=== PATIENT | female | born 1935 | race Caucasian/White ===

== ENCOUNTER → 2023-12-11 | Outpatient (CLI) | payer MEDICARE, OTHER ==
[~2023-12-11] MED LIST: ALPARAZOLAM0.5 MG PO; ALPRAZOLAM0.25 MG PO; CALCIUM + D 5001 TAB PO; CARDI-OMEGA1000 MG PO; DUO-KAPS1 CAP PO; LEVOTHYROXIN0.112 MG PO; XALATAN EYE DROPS OP
== END ==
LOC: LAB 08:00
DX: E03.4 Atrophy of thyroid (acquired) (principal)